=== PATIENT | female | born 2005 | race Caucasian/White ===

== ENCOUNTER 2024-07-22 01:18 | Emergency (ER) | payer SELFPAY ==
--- OUTSIDE RECORDS SUMMARY | 2024-07-22 01:21 | XMS REPORT | Continuity of Care Document ---
Author Name Unknown Address [address] [place] [address] [address] [place], [place] [id number] [place] [address] Address [address] [facility] [address] [place] [address] Care Team Providers Care Operations Processor Name Role Phone CHONG WILDER Attending Clinician Unavailab le Encounters Start Date/Time End Date/Time Encounter Type Admission Type Attending Clinicians Care Facility Care Department Encounter ID Source 2023-01-18 09:38:00 2023-01-18 13:33:00 Emergency E CHONG WILDER [facility] [id number] [facility]
[2024-07-22] MEDS ORDERED: LIDOCAINE 1% 20 ML MDV ONE (02:17)
[2024-07-22] MEDS ORDERED: LORAZEPAM 1 MG TABLET ONE ×2 (02:44→05:13)
[2024-07-22 02:48] LABS: Absolute Basophils 0.1 K/uL (0-0.5); Absolute Lymphocytes (CBC) 3.3 K/uL (0.7-4.9); Absolute Neutrophil 5.5 K/uL (1.8-8.0); Basophils % 0.7 % (0-1.3); Hematocrit 38.6 % (36.0-45.0); Hemoglobin 13.5 g/dL (12.0-15.0); Lymphocytes % 33.7 % (15.3-44.8); MCH 33.2 pg (27.0-35.0); MCV 95.1 fL (80-100); MPV 10.6 fL (7.6-11.3); Neutrophils % 55.6 % (41.7-73.7); Platelets 173 thou/uL (152-406); RBC Red Blood Cell Count 4.06 M/uL (3.86-4.86); Red Cell Distribution Width 12.8 % (12.1-15.2)
[2024-07-22 02:49] LABS: PT Prothrombin Time 13.4 SECONDS (10-13.0); Protime INR 1.18
[2024-07-22 03:01] LABS: ALT/SGPT 15 U/L (13-56); AST/SGOT 13 U/L (15-37); Albumin/Globulin Ratio 1.2 (1.1-1.8); Alkaline Phosphatase 53 U/L (45-117); Anion Gap 10.5 mEq/L (5.0-15.0); BUN Blood Urea Nitrogen 31 mg/dL (7-18); Bicarbonate 27 mEq/L (21-32); Bilirubin Direct 0.2 mg/dL (0-0.2); Bilirubin Indirect, Calculated 0.6 mg/dL (0.2-0.8); Bilirubin Total 0.8 mg/dL (0.2-1.0); Globulin 3.3 g/dL (2.3-3.5); Glomerular Filtration Rate 102 ml/min (=/>90); Glucose Level 89 mg/dL (74-106); Potassium 3.5 mEq/L (3.5-5.1); Protein, Total 7.3 g/dL (6.4-8.2); Sodium Level 139 mEq/L (136-145)
[2024-07-22 03:56] LABS: Barbiturates NEGATIVE (NEGATIVE); Benzodiazepines POSITIVE (NEGATIVE); Cocaine NEGATIVE (NEGATIVE); METHAMPHETAM POSITIVE (NEGATIVE); Methadone NEGATIVE (NEGATIVE); Opiates NEGATIVE (NEGATIVE); Phencyclidine NEGATIVE (NEGATIVE); THC Cannibis POSITIVE (NEGATIVE)
[2024-07-22 04:00] LABS: Renal Epithelial <5 /HPF (None Seen); Specific Gravity 1.021 (1.005-1.030); Sqamous Epithelial <5 /HPF (None Seen); Urine Bacteria None Seen /HPF (<20); Urine Bilirubin NEGATIVE (Negative); Urine Blood 3+ (OVER) (Negative); Urine Clarity Turbid (Clear); Urine Color Light-Yellow (Yellow); Urine Culture Reflex Order NOT NEEDED; Urine Glucose NEGATIVE (Negative); Urine Ketones NEGATIVE (Negative); Urine Microscopic Reflex YN ORDER UMIC; Urine Nitrite NEGATIVE (Negative); Urine Protein NEGATIVE (Negative); Urine RBC <5 /HPF (None Seen); Urine Urobilinogen Normal (Normal); Urine WBC <5 /HPF (<5)
--- NOTE | 2024-07-22 04:47 | EDPHYS ---
Physician Documentation [facility] Name: Melissa Ricardo Age: 19 yrs Sex: Female : 2005 Arrival Date: 07/22/2024 Time: 01:18 Bed 17 Private MD: ED Physician Brannon Zavala HPI: 07/22 01:22 This 19 yrs old Female presents to ER via Unassigned with complaints of gen sp4 complaint . 04:39 19-year-old female presents with suicidal ideation and self-inflicted laceration to the sp4 right forearm. SECURITY TECH: 02:07 LMP 07/19/2024, unknown al5 Historical: - Allergies: :26 No Known Allergies; al5 - PMHx: :26 depression; Anxiety; al5 - PSHx: :26 None; al5 - Immunization history:: Adult Immunizations up to date, Last tetanus immunization: up to date. - Infectious Disease History:: Denies. - Social history:: Smoking status: Patient denies any tobacco usage or history of. Patient uses street drugs, marijuana. - Family history:: not pertinent. ROS: 04:39 Constitutional: Negative for fever, chills, and weight loss, positive for depression sp4 and suicidal ideation and self-inflicted laceration 04:39 All other systems are negative, Exam: 04:39 Constitutional: This is a well developed, well nourished patient who is awake, alert, sp4 appears depressed, thin female , 4 cm laceration right mid foreams palmar surface Head/Face: Normocephalic, atraumatic. Eyes: Pupils equal round and reactive to light, extra-ocular motions intact. Lids and lashes normal. Conjunctiva and sclera are not injected. Cornea within normal limits. Periorbital areas with no swelling, redness, or edema. ENT: Nares patent. No nasal discharge, no septal abnormalities noted. Tympanic membranes are normal and external auditory canals are clear. Oropharynx with no redness, swelling, or masses, exudates, or evidence of obstruction, uvula midline. Mucous membranes moist. Neck: Trachea midline, no thyromegaly or masses palpated, and no cervical lymphadenopathy. Supple, full range of motion without nuchal rigidity, or vertebral point tenderness. Chest/axilla: Normal chest wall appearance and motion. Nontender with no deformity. No lesions are appreciated. Cardiovascular: Regular rate and rhythm with a normal S1 and S2. No gallops, murmurs, or rubs. Normal PMI, no JVD. No pulse deficits. Respiratory: Lungs have equal breath sounds bilaterally, clear to auscultation and percussion. No rales, rhonchi or wheezes noted. No increased work of breathing, no retractions or nasal flaring. Abdomen/GI: Soft, with normal bowel sounds. No distension or tympany. No guarding or rebound. No evidence of tenderness throughout. Back: No spinal tenderness. No costovertebral tenderness. Skin: Warm, dry with normal turgor. Normal color with no rashes, no lesions, and no evidence of cellulitis. MS/ Extremity: Pulses equal, no cyanosis. Neurovascular intact. Full, normal range of motion. Neuro: Awake and alert, GCS 15, oriented to person, place, time, and situation. Cranial nerves II-XII grossly intact. Motor strength 5/5 in all extremities. Sensory grossly intact. Psych: Awake, alert, with orientation to person, place and time. Behavior normal, mood - depressed 04:47 ECG was reviewed by the Attending Physician. EKG 0 148 normal sinus rhythm with sinus sp4 arrhythmia rate 75 otherwise normal Vital Signs: 01:25 BP 120 / 79; Pulse 97; Resp 16; Temp 98.4; Pulse Ox 99% on R/A; Weight 49.9 kg; Height al5 5 ft. 3 in. ; 04:00 BP 121 / 75; Pulse 91; Resp 18; Temp 98.4; Pulse Ox 99% ; Pain 0/10; bm8 05:42 BP 104 / 65; Pulse 73; Resp 16; Temp 98.4; Pulse Ox 100% ; Pain 0/10; bm8 01:25 Body Mass Index 19.49 (49.90 kg, 160.02 cm) al5 04:00 Pain Scale: Adult bm8 05:42 Pain Scale: Adult bm8 Katie Coma Score: 04:00 Eye Response: spontaneous(4). Motor Response: obeys commands(6). Verbal Response: bm8 oriented(5). Total: 15. 04:39 Eye Response: spontaneous(4). Motor Response: obeys commands(6). Verbal Response: sp4 oriented(5). Total: 15. 05:42 Eye Response: spontaneous(4). Motor Response: obeys commands(6). Verbal Response: bm8 oriented(5). Total: 15. Laceration: 04:44 Wound Repair of 4cm ( 1.6in ) subcutaneous laceration to dorsal aspect of right forearm sp4 - 4 cm straight laceration in diagonal orientation . Linear shaped.. Hemostasis noted.. Distal neuro/vascular/tendon intact. Anesthesia: Wound infiltrated with 15 mls of 1% lidocaine. Wound prep: Moderate cleansing by me, Copious irrigation. Skin closed with 16 6-0 Prolene using interrupted sutures and sterile technique. Dressed with 4x4's, Kerlix, non-adherent dressing. Patient tolerated well. MDM: 04:47 Medical Screening Exam initiated sp4 04:47 Differential Diagnosis altered mental status, sepsis, flu. Data reviewed: vital signs, sp4 nurses notes, EMS record, lab test result(s), EKG. Consideration of Admission/Observation Escalation of care including admission/observation considered. 07/22 01:41 Order name: Acetaminophen; Complete Time: 04:38 [facility] 07/22 01:41 Order name: Basic Metabolic Panel; Complete Time: 04:38 [facility] 07/22 01:41 Order name: CBC with Diff; Complete Time: 04:38 [facility] 07/22 01:41 Order name: ETOH Level; Complete Time: 04:38 [facility] 07/22 01:41 Order name: Hepatic Function; Complete Time: 04:38 [facility] 07/22 01:41 Order name: PT-INR; Complete Time: 04:38 [facility] 07/22 01:41 Order name: Test, Urine; Complete Time: 04:38 [facility] 07/22 01:41 Order name: Ptt, Activated; Complete Time: 04:38 [facility] 07/22 01:41 Order name: Salicylate; Complete Time: 04:38 [facility] 07/22 01:41 Order name: Urinalysis w/ reflexes; Complete Time: 04:38 [facility] 07/22 01:41 Order name: Urine Drug Screen; Complete Time: 04:38 [facility] 07/22 01:41 Order name: Dressing - Wound; Complete Time: 02:38 [facility] 07/22 01:41 Order name: Gloves, Sterile; Complete Time: 02:38 [facility] 07/22 01:41 Order name: Setup Suture Tray; Complete Time: 02:38 sp4 07/22 01:41 Order name: EKG - Nurse/Tech; Complete Time: 01:50 sp4 07/22 01:41 Order name: IV Saline Lock; Complete Time: 02:10 sp4 07/22 01:41 Order name: Labs collected and sent; Complete Time: 02:10 sp4 07/22 01:41 Order name: Suicide Precautions; Complete Time: 02:21 sp4 07/22 01:41 Order name: Suicide Screening ([place]); Complete Time: 02:21 sp4 07/22 01:42 Order name: Wound Care: done by MD ; Complete Time: 05:06 sp4 EC:48 Rate is 75 beats/min. Rhythm is regular, Normal Sinus Rhythm. QRS [place] is Normal. [place] sp4 interval is normal. QRS interval is normal. QT interval is normal. No Q waves. T waves are Normal. No ST changes noted. Clinical impression: Normal ECG. Interpreted by me. Reviewed by me. Administered Medications: 02:45 Drug: LORazepam PO 1 mg PO once Route: PO; al5 04:12 Follow up: Response: No adverse reaction bm8 04:13 Drug: Lidocaine Infiltration (1 %) 20 ml 20 ml Infiltration once; to bedside {Note: bm8 administered by provider.} Volume: 20 ml; Route: Infiltration; Site: affected area; 05:47 Follow up: Response: No adverse reaction bm8 05:16 Drug: Cephalexin PO 500 mg PO once Route: PO; bm8 05:47 Follow up: Response: No adverse reaction bm8 05:16 Drug: Trimethoprim-Sulfamethoxazole PO (160 mg-800 mg (DS) 1 tablet PO once Route: PO; bm8 05:47 Follow up: Response: No adverse reaction bm8 05:16 Drug: Ondansetron PO 4 mg PO once Route: PO; bm8 05:17 Follow up: Response: No adverse reaction bm8 05:47 Follow up: Response: No adverse reaction bm8 Disposition Summary: 07/22/24 05:38 Discharge Ordered Notes: Please return after 20 days for suture removal Location: Home sp4 Problem: new(07/22/24 05:38) sp4 Symptoms: have improved(07/22/24 05:38) sp4 Condition: Stable(07/22/24 05:38) sp4 Diagnosis - Acute laceration right forearm self-inflicted, methamphetamine abuse, cannabis sp4 abuse, acute depression Followup: sp4 - With: Jalil Benson MD - When: 7 - 10 days - Reason: Recheck today's complaints Discharge Instructions: - Discharge Summary Sheet sp4 - Laceration Care, Adult, Xkka-[id number]-Menu sp4 Forms: - Patient Portal Instructions sp4 Signatures: Dispatcher [employer] Brannon Hargrove MD MD sp4 Bennie Lindsey, RN RN bm8 Nakita Tejada RN RN al5 Corrections: (The following items were deleted from the chart) 02:05 02:02 Allergies: No Known Allergies; al5 al5 02:05 02:02 PMHx: depression; al5 al5 02:05 02:02 PMHx: Anxiety; al5 al5 02:05 02:02 PSHx: None; al5 al5 02:05 02:02 Immunization history: Adult Immunizations up to date, Last tetanus immunization: al5 up to date al5 02:05 02:02 Infectious Disease History: Denies. al5 al5 02:05 02:02 Social history: Smoking status: Patient denies any tobacco usage or history of. al5 Patient uses [address] drugs, marijuana, al5 05:37 04:47 Attending psychiatrist sp4 sp4 05:37 04:47 Psych Facility sp4 sp4 05:37 04:47 Higher level of care sp4 sp4 05:37 04:47 Stable sp4 sp4 05:37 04:47 new sp4 sp4 05:37 04:47 are unchanged sp4 sp4 05:37 04:47 Acute depression, acute suicide attempt, laceration of the right forearm sp4 subcutaneous, initial encounter sp4 05:37 04:47 Methamphetamine abuse, cannabis abuse, sp4 sp4
--- NOTE | 2024-07-22 04:47 | ER ---
Nurse's Notes [facility] Name: Melissa Ricardo Age: 19 yrs Sex: Female : 2005 Arrival Date: 07/22/2024 Time: 01:18 Bed 17 Private MD: Diagnosis: Acute laceration right forearm self-inflicted, methamphetamine abuse, cannabis abuse, acute depression Presentation: 07/22 01:25 Chief complaint: EMS states: self inflicted laceration to R inner forearm with moderate al5 bleeding, wound deep to subcutaneous tissue. patient states she has thoughts of hurting herself, denies thoughts of hurting others. loss mother and best friend about 2 years ago and lost a friend about a year ago. has no support system at home with no permanent residence. Coronavirus screen: At this time, the client does not indicate any symptoms associated with coronavirus-19. Ebola Screen: No symptoms or risks identified at this time. Initial Sepsis Screen: Does the patient meet any 2 criteria? HR > 90 bpm. No. Patient's initial sepsis screen is negative. Does the patient have a suspected source of infection? No. Patient's initial sepsis screen is negative. Risk Assessment: Do you want to hurt yourself or someone else? Patient reports desire/thoughts of hurting themselves or someone else. Provider notified. Onset of symptoms was July 22, 2024. 01:25 Method Of Arrival: EMS: [facility] al5 01:25 Acuity: MICHAEL 2 al5 Triage Assessment: 01:25 General: Appears in no apparent distress. slender, well groomed, Behavior is calm, al5 cooperative, flat. Pain: Complains of pain in dorsal aspect of right forearm. EENT: No signs and/or symptoms were reported regarding the EENT system. Neuro: Level of Consciousness is awake, alert, obeys commands, Oriented to person, place, time, situation. Cardiovascular: Capillary refill < 3 seconds Patient's skin is warm and dry. Rhythm is sinus rhythm. Respiratory: Airway is patent Respiratory effort is even, unlabored, Respiratory pattern is regular, symmetrical. GI: Abdomen is flat, non-distended. : No signs and/or symptoms were reported regarding the genitourinary system. Derm: Skin is healthy with good turgor, Skin is pink, warm \\T\\ dry. normal, Wound noted dorsal aspect of right forearm Wound is laceration to R inner forearm. Musculoskeletal: No signs and/or symptoms reported regarding the musculoskeletal system. Injury Description: Laceration sustained to dorsal aspect of right forearm is clean, full thickness, 2.6 to 7.5 cm long, moderate bleeding noted at this time. A dressing was applied. MEDICATION COORDINATOR: 02:07 LMP 07/19/2024, unknown al5 Historical: - Allergies: 01:26 No Known Allergies; al5 - PMHx: :26 depression; Anxiety; al5 - PSHx: :26 None; al5 - Immunization history:: Adult Immunizations up to date, Last tetanus immunization: up to date. - Infectious Disease History:: Denies. - Social history:: Smoking status: Patient denies any tobacco usage or history of. Patient uses street drugs, marijuana. - Family history:: not pertinent. Screenin:28 [facility] ED Fall Risk Assessment (Adult) History of falling in the last 3 months, al5 including since admission No falls in past 3 months (0 pts) Confusion or Disorientation No (0 pts) Intoxicated or Sedated No (0 pts) Impaired Gait No (0 pts) Mobility Assist Device Used No (0 pt) Altered Elimination No (0 pt) Score/Fall Risk Level 0 - 2 = Low Risk Oriented to surroundings, Maintained a safe environment, Hourly rounding (assess needs \\T\\ fall precautionary measures) done. Abuse screen: Denies threats or abuse. Denies injuries from another. Nutritional screening: No deficits noted. Tuberculosis screening: No symptoms or risk factors identified. Assessment: 01:27 Reassessment: see triage assessment. al5 02:07 Reassessment: lelsie cruz (step father): [phone]. al5 02:11 Reassessment: keri (boyfriend): [phone]. al5 04:00 Reassessment: received report from Jhony Mace, accepting pt at this time. bm8 04:10 Reassessment: Patient appears in no apparent distress at this time. Patient is alert, bm8 oriented x 3, equal unlabored respirations, skin warm/dry/pink. Provider is currently repairing lacerations. Patient denies pain at this time. 05:07 Reassessment: [facility] POWDER CORE TESTER CALLED STATES" I WILL BE THERE IN 45 MINUTES.". ha1 05:42 Reassessment: Patient appears in no apparent distress at this time. Patient and/or bm8 family updated on plan of care and expected duration. Pain level reassessed. Patient is alert, oriented x 3, equal unlabored respirations, skin warm/dry/pink. After speaking with provider pt does not wish to be transferred to [facility]. Pt and this nurse went over discharge safety plan. Pt was provided a copy of the form with discharge papers and security called to return items from [facility]. Pt currently denies any SI/ HI. Patient denies pain at this time. Patient states feeling better. Patient states symptoms have improved. Vital Signs: 01:25 BP 120 / 79; Pulse 97; Resp 16; Temp 98.4; Pulse Ox 99% on R/A; Weight 49.9 kg; Height al5 5 ft. 3 in. ; 04:00 BP 121 / 75; Pulse 91; Resp 18; Temp 98.4; Pulse Ox 99% ; Pain 0/10; bm8 05:42 BP 104 / 65; Pulse 73; Resp 16; Temp 98.4; Pulse Ox 100% ; Pain 0/10; bm8 01:25 Body Mass Index 19.49 (49.90 kg, 160.02 cm) al5 04:00 Pain Scale: Adult bm8 05:42 Pain Scale: Adult bm8 [place] Coma Score: 04:00 Eye Response: spontaneous(4). Motor Response: obeys commands(6). Verbal Response: bm8 oriented(5). Total: 15. 04:39 Eye Response: spontaneous(4). Motor Response: obeys commands(6). Verbal Response: sp4 oriented(5). Total: 15. 05:42 Eye Response: spontaneous(4). Motor Response: obeys commands(6). Verbal Response: bm8 oriented(5). Total: 15. ED Course: 01:21 Patient arrived in ED. [email or web address] 01:22 Brannon Zavala MD is Attending Physician. sp4 01:26 Arm band placed on left wrist. Patient placed in the treatment room, in view of staff al5 members, on pulse oximetry. 01:27 No provider procedures requiring assistance completed. al5 01:28 Patient has correct armband on for positive identification. Placed in gown. Bed in low al5 position. Call light in reach. Side rails up X2. Provided Education on: plan of care. 01:50 EKG done, by ED staff, reviewed by Brannon Zavala MD. oe 01:59 Nakita Tejada, RN is Primary Nurse. al5 02:02 Triage completed. al5 02:10 Inserted saline lock: 22 gauge in left forearm, using aseptic technique. Blood oe collected. Flushed with 10 mL NS. 02:10 Acetaminophen Sent. oe 02:11 Basic Metabolic Panel Sent. oe 02:11 CBC with Diff Sent. oe 02:11 ETOH Level Sent. oe 02:11 Hepatic Function Sent. oe 02:11 PT-INR Sent. oe 03:36 Test, Urine Sent. oe 03:36 Urinalysis w/ reflexes Sent. oe 03:36 Urine Drug Screen Sent. oe 04:00 Safety Checks: Personal items have been removed. The door is open or patient has been bm8 placed in a hallway bed/chair. There are no family/friend visitors at this time. 04:00 Patient maintains SpO2 saturation greater than 95% on room air. bm8 04:20 Warm blanket given. oe 04:32 [facility], [facility]. 04:38 notified [facility]. [facility] 05:00 Safety Checks: Personal items have been removed. The door is open or patient has been bm8 placed in a hallway bed/chair. There are no family/friend visitors at this time. 05:08 Assist provider with laceration repair on right arm and dorsal aspect of right forearm bm8 that was 2.5 cm. or less using sutures. Set up tray. Performed by Brannon Zavala MD Dressed with 4X4s, Kerlix, Neosporin, Patient tolerated well. 05:21 IV discontinued, intact, bleeding controlled, No redness/swelling at site. Pressure bm8 dressing applied, pt removed her own iv. 05:37 Jalil Benson MD is Referral Physician. sp4 05:42 Provided Education on: Safety discharge plan reviewed with pt. see paper charting for bm8 plan. Post er care for wound. Administered Medications: 02:45 Drug: LORazepam PO 1 mg PO once Route: PO; al5 04:12 Follow up: Response: No adverse reaction bm8 04:13 Drug: Lidocaine Infiltration (1 %) 20 ml 20 ml Infiltration once; to bedside {Note: bm8 administered by provider.} Volume: 20 ml; Route: Infiltration; Site: affected area; 05:47 Follow up: Response: No adverse reaction bm8 05:16 Drug: Cephalexin PO 500 mg PO once Route: PO; bm8 05:47 Follow up: Response: No adverse reaction bm8 05:16 Drug: Trimethoprim-Sulfamethoxazole PO (160 mg-800 mg (DS) 1 tablet PO once Route: PO; bm8 05:47 Follow up: Response: No adverse reaction bm8 05:16 Drug: Ondansetron PO 4 mg PO once Route: PO; bm8 05:17 Follow up: Response: No adverse reaction bm8 05:47 Follow up: Response: No adverse reaction bm8 Medication: 01:27 VIS not applicable for this client. al5 Outcome: 04:47 ER care complete, transfer ordered by . sp4 05:38 Discharge ordered by MD. sp4 05:42 Discharged to home ambulatory, with family, bm8 05:42 Condition: stable 05:42 Discharge instructions given to patient, family, Instructed on discharge instructions, follow up and referral plans. Demonstrated understanding of instructions, follow-up care, 06:04 Patient left the ED. bm8 Signatures: Tristen Kauffman Jennifer jj6 Luz Mathew RN RN ha1 Brannno Zavala MD MD sp4 Jessika House [facility] Bennie Lindsey RN RN bm8 Nakita Tejada RN RN al5 Corrections: (The following items were deleted from the chart) 02:05 02:02 Allergies: No Known Allergies; al5 al5 02:05 02:02 PMHx: depression; al5 al5 02:05 02:02 PMHx: Anxiety; al5 al5 02:05 02:02 PSHx: None; al5 al5 02:05 02:02 Immunization history: Adult Immunizations up to date, Last tetanus immunization: al5 up to date al5 02:05 02:02 Infectious Disease History: Denies. al5 al5 02:05 02:02 Social history: Smoking status: Patient denies any tobacco usage or history of. al5 [address] drugs, marijuana, al5 02:22 01:25 Risk Assessment: Do you want to hurt yourself or someone else? Patient reports no al5 desire to harm self or others. al5 04:39 04:38 [facility]
[2024-07-22] MEDS ORDERED: CEPHALEXIN 250 MG CAP ONE (05:12)
[2024-07-22] MEDS ORDERED: SMZ./TMP. 800/160 MG TABLET ONE (05:12)
[2024-07-22] MEDS ORDERED: ONDANSETRON 4 MG (ODT) TAB ONE (05:13)
[2024-07-22 06:16] VITALS: TEMP 98.4
[2024-07-22 06:27] VITALS: BP 104/65; O2SAT 100
== END 2024-07-22 06:04 | disposition home or self-care (01) ==
LOC: ER 01:18
DX: S51.811A Laceration without foreign body of right forearm, initial encounter (principal); X78.9XXA Intentional self-harm by unspecified sharp object, initial encounter; F15.10 Other stimulant abuse, uncomplicated; F12.10 Cannabis abuse, uncomplicated; F32.A Depression, unspecified
CPT/HCPCS: 36415; 80048; 80076; 80143; 80179; 80307; 81001; 81025; 82077; 85025; 85610; 85730; 93005; J2003; Q0162

== ENCOUNTER 2024-07-28 23:35 | Emergency (ER) | payer SELFPAY ==
--- OUTSIDE RECORDS SUMMARY | 2024-07-28 23:38 | XMS REPORT | Continuity of Care Document ---
Author Name Unknown Address [address] [place] [address] [place] [address] [address] [place] [address] Care Team Providers Care Tree Tapping Laborer Name Role Phone CHONG WILDER Attending Clinician Unavailab le Encounters Start Date/Time End Date/Time Encounter Type Admission Type Attending Clinicians Care Facility Care Department Encounter ID Source 2023-01-18 09:38:00 2023-01-18 13:33:00 Emergency E CHONG WILDER [facility] [id number] [facility]
[2024-07-29 00:15] LABS: Absolute Lymphocytes (CBC) 1.6 K/uL (0.7-4.9); Absolute Monocytes 0.5 K/uL (0.1-1.3); Absolute Neutrophil 5.4 K/uL (1.8-8.0); Basophils % 0.2 % (0-1.3); Hematocrit 41.7 % (36.0-45.0); Hemoglobin 14.3 g/dL (12.0-15.0); Lymphocytes % 20.7 % (15.3-44.8); MCH 33.7 pg (27.0-35.0); MCHC 34.4 g/dL (32.0-36.0); MPV 9.9 fL (7.6-11.3); Neutrophils % 72.1 % (41.7-73.7); Platelets 181 thou/uL (152-406); RBC Red Blood Cell Count 4.25 M/uL (3.86-4.86)
[2024-07-29 00:18] LABS: Specific Gravity 1.012 (1.005-1.030)
[2024-07-29] MEDS ORDERED: LEVETIRACETAM 500 MG/5 ML VIAL IV ONE (00:18)
[2024-07-29] MEDS ORDERED: NA CHLORIDE 0.9% 100 ML ONE (00:18)
[2024-07-29 00:20] LABS: Specific Gravity 1.012 (1.005-1.030); Sqamous Epithelial <5 /HPF (None Seen); Urine Bacteria <20 /HPF (<20); Urine Bilirubin NEGATIVE (Negative); Urine Blood Trace (Negative); Urine Clarity Turbid (Clear); Urine Color Light-Yellow (Yellow); Urine Culture Reflex Order NOT NEEDED; Urine Glucose NEGATIVE (Negative); Urine Ketones TRACE (Negative); Urine Microscopic Reflex YN ORDER UMIC; Urine Mucus Slight /HPF (None Seen); Urine Nitrite NEGATIVE (Negative); Urine Protein 1+ (Negative); Urine RBC <5 /HPF (None Seen); Urine Urobilinogen Normal (Normal); Urine WBC <5 /HPF (<5); Urine pH 5.5 (5.0-7.0)
[2024-07-29 00:26] LABS: Barbiturates NEGATIVE (NEGATIVE); Benzodiazepines NEGATIVE (NEGATIVE); Cocaine NEGATIVE (NEGATIVE); METHAMPHETAM POSITIVE (NEGATIVE); Methadone NEGATIVE (NEGATIVE); Opiates NEGATIVE (NEGATIVE); Phencyclidine NEGATIVE (NEGATIVE); THC Cannibis POSITIVE (NEGATIVE)
[2024-07-29 01:06] LABS: Albumin 3.5 g/dL (3.4-5.0); Albumin/Globulin Ratio 1.2 (1.1-1.8); Anion Gap 7.9 mEq/L (5.0-15.0); Bilirubin Total 0.2 mg/dL (0.2-1.0); Potassium 3.9 mEq/L (3.5-5.1); Protein, Total 6.5 g/dL (6.4-8.2)
--- NOTE | 2024-07-29 01:08 | ER ---
Nurse's Notes [facility] Name: Melissa Ricardo Age: 19 yrs Sex: Female : 2005 Arrival Date: 07/28/2024 Time: 23:35 Bed 7 Private MD: Diagnosis: Other seizures Presentation: 07/29 00:05 Chief complaint: Patient states: WITNESSED SEIZURE LIKE ACTIVITY THAT LASTED APPROX 1 br2 MINUTE. THIS IS THE 3RD SEIZURE SHE HAS HAD AND ISN'T TAKING MEDS FOR SEIZURE. PT AAOX4 ON ER ARRIVAL. PER EMS PT WAS POST ICTAL ON THEIR ARRIVAL. Coronavirus screen: Client denies travel out of the [place] in the last 14 days. Ebola Screen: Patient denies exposure to infectious person. Initial Sepsis Screen: Does the patient meet any 2 criteria? No. Patient's initial sepsis screen is negative. Does the patient have a suspected source of infection? No. Patient's initial sepsis screen is negative. Risk Assessment: Do you want to hurt yourself or someone else? Patient reports no desire to harm self or others. Onset of symptoms is unknown. 00:05 Method Of Arrival: EMS: [facility] br2 00:05 Acuity: MICHAEL 3 br2 Triage Assessment: 00:09 General: Appears in no apparent distress. comfortable, Behavior is calm, cooperative. br2 Pain: Denies pain. EENT: No signs and/or symptoms were reported regarding the EENT system. Neuro: Sotelo Agitation-Sedation Scale (RASS): 0 - Alert and Calm Level of Consciousness is awake, alert, obeys commands, Oriented to person, place, time, situation. Cardiovascular: Denies chest pain. Respiratory: Airway is patent Respiratory effort is even, unlabored, Respiratory pattern is regular, symmetrical. GI: No signs and/or symptoms were reported involving the gastrointestinal system. : No signs and/or symptoms were reported regarding the genitourinary system. Derm: No signs and/or symptoms reported regarding the dermatologic system. Musculoskeletal: Circulation, motion, and sensation intact. Capillary refill < 3 seconds, Range of motion: intact in all extremities. Historical: - Allergies: 00:09 No Known Allergies; br2 - PMHx: 00:09 Anxiety; Depression; br2 - Immunization history:: Adult Immunizations up to date. - Infectious Disease History:: Denies. - Social history:: Smoking status: Reported history of juuling and/or vaping. Patient/guardian denies using alcohol, street drugs. Screenin:15 [facility] ED Fall Risk Assessment (Adult) History of falling in the last 3 months, br2 including since admission No falls in past 3 months (0 pts) Confusion or Disorientation No (0 pts) Intoxicated or Sedated No (0 pts) Impaired Gait No (0 pts) Mobility Assist Device Used No (0 pt) Altered Elimination No (0 pt) Score/Fall Risk Level 0 - 2 = Low Risk Oriented to surroundings. Abuse screen: Denies threats or abuse. Denies injuries from another. Nutritional screening: No deficits noted. Tuberculosis screening: No symptoms or risk factors identified. Assessment: 01:29 Reassessment: SEE TRIAGE ASSESSMENT. br2 Vital Signs: 00:05 BP 114 / 64; Pulse 114; Resp 18; Temp 98.9; Pulse Ox 100% on NC; Weight 49.9 kg; Height br2 5 ft. 4 in. ; Pain 0/10; 00:41 BP 119 / 71; Pulse 92; Resp 18; Pulse Ox 97% on R/A; kd3 00:05 Body Mass Index 18.88 (49.90 kg, 162.56 cm) br2 00:05 Pain Scale: Adult br2 Katie Coma Score: 00:09 Eye Response: spontaneous(4). Motor Response: obeys commands(6). Verbal Response: br2 oriented(5). Total: 15. ED Course: 07/28 23:43 Patient arrived in ED. vk 23:50 Je[facility] Craig [facility]C [facility] kb 23:50 Brannon Zavala MD is Attending Physician. kb 23:55 Nuria Taveras RN is Primary Nurse. kd3 07/29 00:09 Triage completed. br2 00:09 Arm band placed on Patient placed in the treatment room, Patient SEIZURE PADS APPLIED. br2 00:14 Test, Urine Sent. br2 00:14 Urinalysis w/ reflexes Sent. br2 00:14 Urine Drug Screen Sent. br2 00:14 CBC with Diff Sent. br2 00:14 CMP Sent. br2 00:14 Maintain EMS IV. Dressing intact. Good blood return noted. Site clean \T\ dry. Gauge \T\ br 2 site: 20G LEFT AC. Flushed with 10 mL NS. 00:15 Side rails up X2. Seizure precautions initiated. Provided Education on: PLAN OF CARE. br2 01:32 No provider procedures requiring assistance completed. IV discontinued, intact, kd3 bleeding controlled, No redness/swelling at site. Pressure dressing applied. Administered Medications: 00:40 Drug: Keppra IV 1000 mg IV at calculated rate once Route: IV; Rate: calculated rate; br2 Site: right antecubital; 01:00 Not Given (COMPLETED 1L BROUGHT BY Sabas): ns 0.9% 1000 ml IV at 1000 ml once; to be br2 given as a bolus over 60 minutes Medication: 01:32 VIS not applicable for this client. kd3 Outcome: 01:08 Discharge ordered by . annamarie 01:33 Discharged to home ambulatory, kd3 01:33 Condition: stable 01:33 Discharge instructions given to patient, Instructed on discharge instructions, follow up and referral plans. Demonstrated understanding of instructions, follow-up care, 01:33 Patient left the ED. kd3 Signatures: Jeana Craig, TOMASA-Ileana RANDOLPH-Nuria Victoria, RN RN kd3 Mai Solorio Belinda, RN RN br2
--- NOTE | 2024-07-29 01:08 | EDPHYS ---
Physician Documentation [facility] Name: Melissa Ricardo Age: 19 yrs Sex: Female : 2005 Arrival Date: 07/28/2024 Time: 23:35 Bed 7 Private MD: ED Physician Brannon Zavala HPI: 07/29 01:01 This 19 yrs old Female presents to ER via EMS with complaints of Seizure, Altered kb Mental Status. 01:01 Pt is a 19 year old female who presents for seizure that lasted approx 30 seconds per kb friend. EMS states pt was postictal upon their arrival and is now A\T\Ox4. Pt has no complaints at this time. Pt states she has had 2 other seizures in the past and is on no medications. First seizure was last summer. Denies drug or alcohol use. Pt was sitting at time of seizure, no injuries. . Historical: - Allergies: 00:09 No Known Allergies; br2 - PMHx: 00:09 Anxiety; Depression; br2 - Immunization history:: Adult Immunizations up to date. - Infectious Disease History:: Denies. - Social history:: Smoking status: Reported history of juuling and/or vaping. Patient/guardian denies using alcohol, street drugs. ROS: 01:01 Constitutional: As per HPI kb Exam: 01:01 Constitutional: This is a well developed, well nourished patient who is awake, alert, kb and in no acute distress. Head/Face: Normocephalic, atraumatic. Eyes: Pupils equal round and reactive to light, extra-ocular motions intact. Lids and lashes normal. Conjunctiva and sclera are non-icteric and not injected. Cornea within normal limits. Periorbital areas with no swelling, redness, or edema. ENT: Moist Mucous membranes Cardiovascular: Regular rate Respiratory: Respirations even and unlabored. No increased work of breathing. Talking in full sentences Abdomen/GI: Soft, non-tender. No distention Skin: Warm, dry with normal turgor. Normal color. MS/ Extremity: Pulses equal, no cyanosis. Neurovascular intact. Full, normal range of motion. Neuro: Awake and alert, GCS 15, oriented to person, place, time, and situation. Vital Signs: 00:05 BP 114 / 64; Pulse 114; Resp 18; Temp 98.9; Pulse Ox 100% on NC; Weight 49.9 kg; Height br2 5 ft. 4 in. ; Pain 0/10; 00:41 BP 119 / 71; Pulse 92; Resp 18; Pulse Ox 97% on R/A; kd3 00:05 Body Mass Index 18.88 (49.90 kg, 162.56 cm) br2 00:05 Pain Scale: Adult br2 Katie Coma Score: 00:09 Eye Response: spontaneous(4). Motor Response: obeys commands(6). Verbal Response: br2 oriented(5). Total: 15. MDM: 07/28 23:50 Medical Screening Exam initiated kb 07/29 01:01 Differential diagnosis: cardiac arrhythmia, seizure. Data reviewed: vital signs, nurses kb notes. Historians other than the Patient: EMS: [facility]. 01:07 Counseling: I had a detailed discussion with the patient and/or guardian regarding the kb historical points, exam findings, and any diagnostic results supporting the discharge/admit diagnosis, lab results, the need for outpatient follow up, a family practitioner, to return to the emergency department if symptoms worsen or persist or if there are any questions or concerns that arise at home. 07/28 23:51 Order name: CBC with Diff; Complete Time: 00:16 kb 07/28 23:51 Order name: CMP; Complete Time: 01:07 kb 07/28 23:51 Order name: Test, Urine; Complete Time: 00:19 kb 07/28 23:51 Order name: Urinalysis w/ reflexes; Complete Time: 00:20 kb 07/28 23:51 Order name: Urine Drug Screen; Complete Time: 00:33 kb 07/28 23:51 Order name: IV Start; Complete Time: 00:10 kb Administered Medications: 00:40 Drug: Keppra IV 1000 mg IV at calculated rate once Route: IV; Rate: calculated rate; br2 Site: right antecubital; 01:00 Not Given (COMPLETED 1L BROUGHT BY Sabas): ns 0.9% 1000 ml IV at 1000 ml once; to be br2 given as a bolus over 60 minutes Disposition: 21:21 Co-signature as Attending Physician, Brannon Zavala MD I agree with the assessment sp4 and plan of care. I reviewed the patient's care provided by the Advanced Practice Provider and agree with the diagnosis and treatment plan. Disposition Summary: 07/29/24 01:08 Discharge Ordered Notes: Location: Home kb Condition: Stable kb Diagnosis - Other seizures kb Followup: kb - With: Emergency Department - When: As needed - Reason: Worsening of condition Followup: kb - With: Private Physician - When: 2 - 3 days - Reason: Recheck today's complaints, Continuance of care, Re-evaluation by your physician Discharge Instructions: - Discharge Summary Sheet kb - Seizure, Adult, [id number] kb Forms: - Medication Reconciliation Form kb - Antibiotic Education kb - Prescription Opioid Use kb - Patient Portal Instructions kb - Leadership Thank You Letter kb Signatures: Dispatcher [employer] EDMS Jeana Craig, OUTSOLE CUTTER MACHINE-C OUTSOLE CUTTER MACHINE-Brannon Bonner MD MD sp4 Dalia Dunham RN RN br2 Corrections: (The following items were deleted from the chart) 01:07 01:01 Pt is a 19 year old female who presents for seizure that lasted approx 30 seconds kb per friend. EMS states pt was postictal upon their arrival and is now A\T\Ox4. Pt has no complaints at this time. Pt states she has had 2 other seizures in the past and is on no medications. First seizure was last summer. Denies drug or alcohol use. . kb
[2024-07-29 01:50] VITALS: BP 114/64; TEMP 98.9; O2SAT 100
== END 2024-07-29 01:33 | disposition home or self-care (01) ==
LOC: ER 23:35
DX: R56.9 Unspecified convulsions (principal)
CPT/HCPCS: 36415; 80053; 80307; 81001; 81025; 85025; 96374; 99284; J1953